=== PATIENT | female | born 1960 | race Caucasian/White ===

== ENCOUNTER 2017-05-01 20:37 | Emergency (ER) | payer SELFPAY ==
[~2017-05-01] VITALS: Ht 172.7 cm; Wt 114.0 kg
[2017-05-01 21:03] VITALS: BP 158/94
== END 2017-05-01 21:57 | disposition left against medical advice (07) ==
LOC: EDBD 20:37 → ED 21:51
DX: R09.02 Hypoxemia (principal); R06.00 Dyspnea, unspecified; Z87.891 Personal history of nicotine dependence; Z99.81 Dependence on supplemental oxygen
CPT/HCPCS: 99283